=== PATIENT | female | born 1980 | race Caucasian/White ===

== ENCOUNTER 2018-12-01 10:29 | Outpatient (CLI) | payer OTHER ==
[~2018-12-01 10:29] MED LIST: OXYC-302 PO
== END 2018-12-01 23:59 | disposition home or self-care (01) ==
LOC: CFH 10:29
PROVIDERS: ATTEND Nurse Practitioner
DX: Z02.9 Encounter for administrative examinations, unspecified (principal)

== ENCOUNTER → 2018-12-09 | Outpatient (CLI) | payer OTHER | END | disposition home or self-care (01) | LOC: CFH 09:23 | PROVIDERS: ATTEND Nurse Practitioner | DX: R07.9 Chest pain, unspecified (principal) ==